=== PATIENT | male | born 1965 | race Caucasian/White ===

== ENCOUNTER 2025-06-14 12:04 | Emergency (ER) | payer SELFPAY ==
[~2025-06-14] VITALS: Ht 165.1 cm; Wt 68.0 kg
[2025-06-14 12:06] VITALS: O2SAT 98
[2025-06-14] MEDS: ACETAMINOPHEN 500MG TABLET PO ONE (13:18)
[2025-06-14] MEDS ORDERED: ACET-2708 MT (14:12)
[2025-06-14 14:50] VITALS: BP 128/68; PULSE 91; RESP 15; TEMP 37; O2SAT 99
[2025-06-14] MEDS: ONDANSETRON 4MG ODT PO ONE (14:53)
== END 2025-06-14 14:54 | disposition home or self-care (01) ==
LOC: ER 12:29
DX: S86.119A Strain of other muscle(s) and tendon(s) of posterior muscle group at lower leg level, unspecified leg, initial encounter (principal); W01.198A Fall on same level from slipping, tripping and stumbling with subsequent striking against other object, initial encounter; Y93.89 Activity, other specified; Y92.89 Other specified places as the place of occurrence of the external cause; Y99.8 Other external cause status
CPT/HCPCS: 99283